=== PATIENT | female | born 1975 | race Caucasian/White ===

== ENCOUNTER → 2017-03-06 | Outpatient (CLI) | payer OTHER ==
--- NOTE | 2017-03-06 20:16 | US ---
EXAMINATION TYPE: US kidneys/renal and bladder DATE OF EXAM: 03/06/2017 COMPARISON: US & CT dated 05/25/2013. CLINICAL HISTORY: N28.1 Left Renal Cyst. EXAM MEASUREMENTS: Right Kidney: 9.5 x 3.1 x 4.5 cm Left Kidney: 10.1 x 4.1 x 5.9 cm Right Kidney: No hydronephrosis or masses seen Left Kidney: Anechoic upper pole renal cyst measures 1.1 x 0.8 x 0.9 cm. And has a well-defined poste rior wall This is unchanged in size in comparison to the prior CT dated 05/25/2013 and should be con sidered benign. Bladder: wnl Bilateral Jets seen: Yes There is no evidence for hydronephrosis at this point in time. No nephrolithiasis is seen. The urina ry bladder is anechoic. Bilateral ureteral jets are seen. IMPRESSION: 1. No evidence of hydronephrosis or nephrolithiasis. 2. Stable left upper pole renal cyst dating back to 05/25/2013, which should be considered benign.
== END | disposition home or self-care (01) ==
LOC: RADUSWWP 15:53
PROVIDERS: ATTEND Urology
DX: N28.1 Cyst of kidney, acquired (principal)
CPT/HCPCS: 76770

== ENCOUNTER → 2019-02-13 | Outpatient (CLI) | payer OTHER ==
--- NOTE | 2019-02-13 08:33 | MM ---
Reason for exam: screening (asymptomatic). Baseline mammogram. History: Family history of breast cancer in maternal grandmother at age 32 and breast cancer in paternal grandmother at age 28. Physical Findings: Nurse did not find any significant physical abnormalities on exam. MG Screening Mammo w CAD Bilateral CC and MLO view(s) were taken. The breast tissue is almost entirely fat. Focal asymmetry upper right MLO view. These results were verbally communicated with the patient and result sheet given to the patient on 02/13/19. ASSESSMENT: Benign, BI-RAD 2 RECOMMENDATION: Routine screening mammogram of both breasts in 1 year.
== END | disposition home or self-care (01) ==
LOC: RADMAMWWP 07:43
PROVIDERS: ATTEND Family Medicine
DX: Z12.31 Encounter for screening mammogram for malignant neoplasm of breast (principal)
CPT/HCPCS: 77067